=== PATIENT | female | born 1940 | race Caucasian/White ===

== ENCOUNTER → 2019-03-28 | Outpatient (CLI) | payer MEDICARE, OTHER ==
[~2019-03-28] MED LIST: 2 BP MEDS; ALPRAZOLAM 0.50.5 M1; CARDIZEM CD180 MG; CARTIA XT; COREG; COUMADIN; COUMADIN 2.5MG2.5 M1; DIURETIC; DOESN'T HAVE LIST; DOXEPIN 10 MG C10 MG; HYDROCHLOROTHIA25 M1; PAXIL20 MG PO; SPIRIVA
== END ==
LOC: M.RAD 10:54
DX: M40.294 Other kyphosis, thoracic region (principal); I71.2 Thoracic aortic aneurysm, without rupture; J42 Unspecified chronic bronchitis

== ENCOUNTER → 2020-02-24 | Outpatient (CLI) | payer MEDICARE, OTHER ==
--- NOTE | 2020-02-27 18:36 | CON ---
[address] [address] CONSULTATION Name: ELVI TAMAYO Room: [facility].#: [id number] Admission: 02/24/20 Attend Phys: Juan Miguel Kan MD Discharge: Date of : 44 Report #: [id number] THIS REPORT FOR: //name// cc: Dung Lopez MD, Jonathan MD ~ THIS REPORT FOR: //name// CC: Juan Miguel Jasso MD DATE OF SERVICE: 02/24/2020 RADIATION ONCOLOGY CONSULT NOTE REFERRING PHYSICIANS: Include Dr. Michael Jasso and Dr. Dung Lopez. LOCATION: [facility], phone is [phone]. PRIMARY SITE AND HISTOPATHOLOGY: The patient is a 79-year-old woman with a limited stage small cell lung cancer. The patient had a screening chest CT at [facility], which showed a suspicious new lesion involving the upper lobe of the left lung. She went on to undergo a biopsy of that lesion at [facility] on 01/24/2020 and the level 11 lymph node revealed small cell cancer. Also, the cytology from the lingula revealed small cell lung cancer. She had a PET/CT scan on 02/15/2020 which revealed a hypermetabolic 1.7 cm x 1.2 cm left upper lobe nodule with an SUV level of 12.7 and also a left hilar and subcarinal lymph node compatible with cristian metastatic disease. The left hilar lymph node measured 2.1 cm x 1.7 cm with an SUV of 11.6 and subcarinal node measured 1 cm x 1 cm with an SUV of 7. She also had primary pulmonary function test on 01/16/2020 and her FEV1 was 1.74 liters, which was 74% of predicted. She saw the medical oncologist, Dr. Jasso, who offered her chemotherapy with consideration for concurrent chemotherapy. He also was going to offer her to participate in the [id number] trial, which randomizes patients between radiation therapy and chemotherapy versus radiation and chemotherapy as well as atezolizumab for 1 year. So, she presents to be evaluated for radiation therapy. PAST MEDICAL HISTORY AND PAST SURGICAL HISTORY: She has had cataract repair, she has chronic hearing loss, she has a history of atrial fibrillation, status post ablation, she has osteoporosis, she has hypertension, she has arthritis, she had a deep venous thrombosis that was treated in 1998 and 2000, she has hypertension, she has had a cholecystectomy, she has a history of depression. MEDICATIONS: Include acyclovir, albuterol inhaler, Xanax as needed, 81 mg aspirin, atorvastatin, carvedilol, iron sulfate tablets, [place] [address] CONSULTATION Name: ELVI TAMAYO Room: [facility]#: [id number] Admission: 02/24/20 Attend Phys: Juan Miguel Kan MD Discharge: Date of : 44 Report #: [id number] tablets, Zofran as needed, pantoprazole, Paxil and Compazine. ALLERGIES: CODEINE, though that may be more of an adverse reaction than an allergy. OBSTETRICS AND GYNECOLOGY: Menarche at age 14, she menopause in 1991. She is 4, para 3, SAB 1. FAMILY HISTORY: Father had colon cancer. SOCIAL HISTORY: The patient is retired. She has 2 daughters. She is . Cigarettes; she smoked cigarettes for 45 years, she quit smoking in 04/2019 and she smoked a half to 1 pack per day approximately. REVIEW OF SYSTEMS: GENERAL: She denied having any fevers or chills. SKIN: She was treated in the past for heat rash, which she does not have currently. LYMPH NODES: She has a lymphadenopathy in the chest area that was noted on the PET/CT. ENDOCRINE: She indicated that Dr. Jasso was going to be addressing some numbness that she has in her left hand. HEMATOLOGY AND IMMUNOLOGY: She says she is sometimes slightly anemic. MUSCULOSKELETAL: She has arthritis. HEAD AND NECK: She has chronic hearing loss. RESPIRATORY: She has chronic obstructive pulmonary disease. CARDIOVASCULAR: She was treated for atrial fibrillation in the past. GASTROINTESTINAL: The patient's appetite is good. NEUROLOGIC: She has a little bit of numbness in the hand and she says that Dr. Jasso will be addressing that. PHYSICAL EXAMINATION: VITAL SIGNS: Height 5 feet 2 inches, weight 148.6 pounds, blood pressure 104/68, respirations 20, pulse 79, oxygen saturation 97%, temperature 96.9 degrees Fahrenheit. GENERAL: The patient is alert, oriented, and in no acute distress. EYES: Pupils were equal, round, and reactive to light. HEAD, EARS, NOSE, THROAT: Mouth had no visible lesions. LYMPH NOES: She had no palpable cervical or supraclavicular lymphadenopathy. HEART: Had a regular rate and rhythm without murmur. LUNGS: were clear to auscultation. ABDOMEN: Not tender. Spleen was not palpable. Liver was at the costal margin. EXTREMITIES: Had no clubbing, cyanosis or edema. NEUROLOGIC: Cranial nerves II to XII were intact. Sensation was intact. She had 4/5 [facility] [address] [place] [address] CONSULTATION Name: ELVI TAMAYO Room: [facility]..#: [id number] Admission: 02/24/20 Attend Phys: Juan Miguel Kan MD Discharge: Date of : 44 Report #: [id number] strength in her extremities. ASSESSMENT AND PLAN: The patient has a limited stage small cell lung cancer. She was offered radiation therapy with consideration for concurrent chemotherapy to treat her limited stage small cell lung cancer. The efficacy for getting radiation therapy with chemotherapy can be found in the CONVERT trial, which compared once daily radiation therapy to 6600 cGy in 33 fractions versus twice a day radiation therapy giving 4500 cGy in 30 twice daily fractions of 150 cGy per fraction. Those patients also receive chemotherapy. There was no significant difference in overall survival between the 2 treatment groups. The 2-year overall survival was about 56% in the twice daily group and 51% in the once daily group and there was more grade 4 neutropenia in the twice daily radiation therapy group. So the risks, benefits, logistics of radiation therapy were explained to the patient in detail and the patient gave her witnessed informed consent to proceed with radiation therapy and she is also being considered for the [id number] trial. Orders were written to schedule her for simulation. Thank you very much for this consult. <ELECTRONICALLY SIGNED> By: Juan Miguel Kan MD 02/27/20 [id number] anusha Weinstein
== END ==
LOC: M.RTH 11:10
PROVIDERS: ATTEND Radiology Radiation Oncology
DX: C34.90 Malignant neoplasm of unspecified part of unspecified bronchus or lung (principal)